=== PATIENT | male | born 1940 | race Caucasian/White ===

== ENCOUNTER 2018-08-07 01:21 | Emergency (ER) | payer MEDICARE, BC ==
[2018-08-07] MEDS ORDERED: EPINEPHrine 1 MG/ML SDV IV ONE (01:22)
[2018-08-07] MEDS ORDERED: Sodium Bicarbonate 8.4% 50 MEQ/50 ML Syringe IV ONE (01:22)
[2018-08-07] MEDS ORDERED: EPINEPHrine 1:10,000 1 MG/10 ML Syringe ONE (01:40)
[2018-08-07] MEDS ORDERED: Sodium Bicarbonate 8.4% 50 MEQ/50 ML Syringe ONE (01:43)
--- NOTE | 2018-08-07 01:48 | PCM.PRNOTE ---
- Free Text/Narrative Note: Pt arrived via EMS with VANITA pumping, IO to left leg and a clint airway in place. Clint airway is leaking pretty severely. Pupils are fixed and dilated. Pt's color is ashen and heart rhythm is asystole. Within first minute of arriving, using a laryngoscope with a MAC 4 blade, I inserted an 8.0 endotracheal tube without meds or difficulty. Positive ETCO2/color change. Javier Sloan used ambu while I secured airway to 24 cm at lip. Kong Hair heard bilateral lung sounds. Javier continued to manually bad while CPR was continued. The VANITA was removed and CPR was performed manually. I placed an 18 gauge angiocath into the right forearm on first attempt. Was able to get 3 cc of blood but not enough for lab testing. Secured IV with tegaderm and tape. Code was halted shortly after and time of was recorded.
--- NOTE | 2018-08-07 01:49 | EDM.PDOC ---
ED HPI GENERAL MEDICAL PROBLEM - General Chief Complaint: CPR in Progress Stated Complaint: AMBULANCE Time Seen by Provider: 08/07/18 01:21 Source of Information: Reports: EMS History Limitations: Reports: Other (CPR in progress) - History of Present Illness INITIAL COMMENTS - FREE TEXT/NARRATIVE: This 78 yo male patient was brought to the ED by [facility] due to a cardiac arrest. CPR was in progress (Lucus in place), airway secured by a KingAir, and an IO in left tibia. The patient had been given 5 doses of Epinephrine prior to arrival. EMS reported A fib without a pulse. Upon arrival, the patient was pulseless and apneic. CPR was continued. The patient was given 2 additional doses of Epinephrine and 1 dose of Sodium Bicarb. The patient was in asystole during the entire encounter. The patient's pupils were fixed and dialated. The patient had a laceration above his left eye. The patient did have a palpable pulse with CPR in progress. The patient does not have any medical history elicited through our medical records. The patient's sister reports that the patient has had several knee surgeries, but no known medications. The patient's reports the patient was diagnosed with Parkinson's and has had decreased mobility throughout the winter. Onset: Today Onset Date: 08/07/18 Onset Time: 00:20 Duration: Other (based on EMS response) Location: Reports: Other (Cardiac arrest) Quality: Reports: Other Severity: Severe Improves with: Reports: None Worsens with: Reports: None Context: Reports: Other Associated Symptoms: Reports: Other ED ROS GENERAL - Review of Systems Review Of Systems: ROS reveals no pertinent complaints other than HPI. ED EXAM, CPR - Physical Exam Exam: See Below Limited By: Other (CPR in progress) General Appearance: Other Eye Exam: Bilateral Eye: Other (Pupils fixed and dialated) Ears: Normal External Exam Nose: Normal Inspection, Other (small amound of dried blood in nares) Throat/Mouth: Other (KingAir upon arrival replaced with an ET tube in ED) Head: Other (The patient had a laceration above left eye. There was a small amount of blood on the patient's forehead) Respiratory Chest: Other (Intubated with clear and equal lung sounds after intubation) Cardiovascular: CPR In Progress (Asystole) (Male) Exam: Deferred Extremities: Normal Inspection Neurological: Unresponsive Skin Exam: Warm, Dry, Mottled (mid chest, neck and head) Course - Orders/Labs/Meds Orders: Active Orders 24 hr Category Date Time Status EKG Documentation Completion [RC] URGENT Care 08/07/18 01:14 Ordered CBC WITH AUTO DIFF [HEME] Urgent Lab 08/07/18 01:14 Ordered COMPREHENSIVE METABOLIC PN,CMP [CHEM] Urgent Lab 08/07/18 01:14 Ordered D-DIMER QUANTITATIVE [COAG] Stat Lab 08/07/18 01:14 Ordered INR,PT,PROTHROMBIN TIME [COAG] Stat Lab 08/07/18 01:14 Ordered TROPONIN I [CHEM] Urgent Lab 08/07/18 01:14 Ordered UA RFX KATIA AND CULT IF INDIC [URIN] Urgent Lab 08/07/18 01:14 Ordered Departure - Departure Time of Disposition: :29 Disposition: 20 Condition: Critical Clinical Impression: Cardiac arrest - Discharge Information - My Orders Last 24 Hours: My Active Orders 08/07/18 01:14 EKG Documentation Completion [RC] URGENT CBC WITH AUTO DIFF [HEME] Urgent COMPREHENSIVE METABOLIC PN,CMP [CHEM] Urgent D-DIMER QUANTITATIVE [COAG] Stat INR,PT,PROTHROMBIN TIME [COAG] Stat TROPONIN I [CHEM] Urgent UA RFX KATIA AND CULT IF INDIC [URIN] Urgent - Assessment/Plan Last 24 Hours: My Active Orders 08/07/18 01:14 EKG Documentation Completion [RC] URGENT CBC WITH AUTO DIFF [HEME] Urgent COMPREHENSIVE METABOLIC PN,CMP [CHEM] Urgent D-DIMER QUANTITATIVE [COAG] Stat INR,PT,PROTHROMBIN TIME [COAG] Stat TROPONIN I [CHEM] Urgent UA RFX KATIA AND CULT IF INDIC [URIN] Urgent
[2018-08-07 02:38] LABS: ANION GAP 29.2; CHLORIDE,CL 111 mmol/L (101-111); SODIUM,NA 143 mmol/L (135-145)
== END 2018-08-07 03:46 | disposition expired ==
LOC: DL.ED 01:21
DX: I46.9 Cardiac arrest, cause unspecified (principal)
CPT/HCPCS: 31500; 36415; 80053; 82962; 84484; 92950; 99285; J0171; 99284